=== PATIENT | female | born 1970 | race Caucasian/White ===

== ENCOUNTER 2017-11-18 18:30 | Emergency (ER) | payer MEDICARE, MEDICAID ==
--- NOTE | 2017-11-18 19:47 | UC ---
Abdominal Pain Female HPI - HPI Summary HPI Summary: 47 female with the sudden onset of lower abd pain about 4:30 pm no n/v no UTI symptoms no f/c no diaphoresis hx LUPUS know GALL[place]ONES had an episode of diarrhea this am before the onset of abd pain - History of Current Complaint Chief Complaint: UCAbdominalPain Stated Complaint: SEVERE ABDOMINAL PAIN Hx Obtained From: Patient Onset/Duration: Sudden Onset Timing: Constant Severity Initially: Severe Severity Currently: Severe Pain Intensity: 10 Pain Scale Used: 0-10 Numeric Location: Diffuse Radiates: No Radiates to: Other - rlq,suprapubic,llq Character: Aching Aggravating Factor(s): Movement Alleviating Factor(s): Nothing Associated Signs and Symptoms: Positive: Diarrhea - this AM Allergies/Adverse Reactions: Allergies Allergy/AdvReac Type Severity Reaction Status Date / Time asenapine [From Saphris] Allergy Unknown Verified 11/18/17 18:54 Reaction Details meloxicam Allergy GI Upset Verified 11/18/17 18:54 oxycodone Allergy Rash Verified 11/18/17 18:54 Penicillins Allergy Unknown Verified 11/18/17 18:54 Reaction Details prednisone Allergy See Comment Verified 11/18/17 18:54 other meds that she cant Allergy Unknown Uncoded 11/18/17 18:54 remember Reaction Details Home Medications: Home Medications Ascorbic Acid TAB* [Vitamin C TAB*] 500 mg PO DAILY 11/18/17 [History Confirmed 11/18/17] BuPROPion XL* [Bupropion XL*] 300 mg PO DAILY 11/18/17 [History Confirmed ] Docusate Calcium [Stool Softener] 240 mg PO BID 11/18/17 [History Confirmed ] Ergocalciferol (Vitamin D2) [Vitamin D2] 50,000 unit PO WEEKLY 11/18/17 [ History Confirmed 11/18/17] Hydroxychloroquine TAB* [Plaquenil TAB*] 200 mg PO BID 11/18/17 [History Confirmed 11/18/17] Losartan/Hydrochlorothiazide [Losartan Potassium/Hydroc 100-12.5 mg] 1 tab PO DAILY 11/18/17 [History Confirmed 11/18/17] Multivitamins/Minerals TAB* [Theragran/minerals TAB*] 1 tab PO DAILY 11/18/17 [ History Confirmed 11/18/17] Oxybutynin Chloride [Ditropan Xl] 5 mg PO DAILY 11/18/17 [History Confirmed ] Pregabalin CAP(*) [Lyrica CAP(*)] 100 mg PO TID 11/18/17 [History Confirmed ] Rotigotine [Neupro] 1 mg TRANSDERM DAILY 11/18/17 [History Confirmed 11/18/17] Vilazodone (NF) [Viibryd (NF)] 40 mg PO DAILY 11/18/17 [History Confirmed ] celeCOXIB CAP* [CeleBREX CAP*] 200 mg PO BID 11/18/17 [History Confirmed ] clonazePAM TAB(*) [KlonoPIN TAB(*)] 0.5 mg PO BID PRN 11/18/17 [History Confirmed 11/18/17] lamoTRIgine [Lamotrigine] 300 mg PO DAILY 11/18/17 [History Confirmed 11/18/17] risperiDONE TAB* [RisperDAL*] 1 mg PO DAILY 11/18/17 [History Confirmed 11/18/17 ] PMH/Surg Hx/FS Hx/Imm Hx Previously Healthy: Yes - LUPUS/FIBRO - Surgical History Surgical History: Yes Surgery Procedure, Year, and Place: Carpal tunnel release both wrists. Left shoulder surgery. D&C - Family History Known Family History: Positive: Hypertension, Other - RA - Social History Alcohol Use: None Substance Use Type: None Smoking Status (MU): Never Smoked Tobacco Review of Systems Constitutional: Negative Skin: Negative Eyes: Negative ENT: Negative Respiratory: Negative Cardiovascular: Negative Gastrointestinal: Abdominal Pain, Diarrhea Genitourinary: Negative Motor: Negative Neurovascular: Negative Musculoskeletal: Negative Neurological: Negative Psychological: Negative Is Patient Immunocompromised?: No All Other Systems Reviewed And Are Negative: Yes Physical Exam Triage Information Reviewed: Yes Appearance: Well-Appearing, No Pain Distress, Well-Nourished Vital Signs: Initial Vital Signs Temp 98.5 F 11/18/17 18:40 Pulse 58 11/18/17 18:40 Resp 12 11/18/17 18:40 BP 142/78 11/18/17 18:40 Pulse Ox 99 11/18/17 18:40 Vital Signs Reviewed: Yes Eyes: Positive: Conjunctiva Clear ENT: Positive: Hearing grossly normal. Negative: Nasal drainage, TMs normal, Trismus, Muffled voice, Hoarse voice Neck: Positive: Supple, Nontender, No Lymphadenopathy Respiratory: Positive: Lungs clear, Normal breath sounds, No respiratory distress, No accessory muscle use Cardiovascular: Positive: RRR, No Murmur Abdomen Description: Positive: CVA Tenderness (R), CVA Tenderness (L). Negative : Nontender - marked tender diffusely Musculoskeletal: Positive: ROM Intact, No Edema Neurological: Positive: Alert Psychological: Positive: Other: - flat affect Skin Exam: Normal Abd Pain Female Course/Dx - Course Course Of Treatment: I explained to pt our limited meds and ablity to work up this problem. Her MD is at [facility]. I offerred to send her there but her family desires to drive her to [facility] and if she needs admission then have her transfer. Declines EMS transfer. D/W Dr. Briones accepts pt - Differential Dx/Diagnosis Provider Diagnoses: adbominal pain of uncerant cause Discharge - Sign-Out/Discharge Documenting (check all that apply): Discharge - Discharge Plan Condition: Stable Disposition: TRANS HIGHER LVL OF CARE FAC Referrals: No Primary Care Phys,NOPCP [Medical Doctor] - Additional Instructions: to er for evaluation of your abdominal pain I spoke to Dr. Briones and they are expecting you to [facility] ER - Billing Disposition and Condition Condition: STABLE Disposition: EMTALA
== END 2017-11-18 19:53 | disposition short-term general hospital (02) ==
LOC: UCCORT 18:30
DX: R10.30 Lower abdominal pain, unspecified (principal); Z32.02 Encounter for pregnancy test, result negative; Z88.8 Allergy status to other drugs, medicaments and biological substances; Z88.0 Allergy status to penicillin; Z88.4 Allergy status to anesthetic agent; Z88.5 Allergy status to narcotic agent
CPT/HCPCS: 81003; 84702; 99202; G0463